=== PATIENT | female | born 2000 | race Two or more races ===

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

== ENCOUNTER 2020-07-21 11:25 | Outpatient (CLI) | payer OTHER | END 2020-07-21 11:39 | disposition home or self-care (01) | LOC: LAB 11:25 | DX: R06.02 Shortness of breath (principal); R05 Cough; R50.9 Fever, unspecified; Z03.818 Encounter for observation for suspected exposure to other biological agents ruled out ==